=== PATIENT | female | born 1980 | race Two or more races ===

== ENCOUNTER 2022-04-21 10:06 | Emergency (ER) | payer BC, MEDICAID, OTHER ==
[~2022-04-21] VITALS: Ht 154.9 cm; Wt 83.0 kg
[2022-04-21] MEDS ORDERED: SODIUM CHLORIDE 0.9% 1,000 ML IV ONE (11:45)
[2022-04-21 12:31] LABS: Basophils # (auto) 0 10 ^3/uL (0-0.2); Basophils % (auto) 0.2 % (0.0-2.0); Eosinophils # (auto) 0 10 ^3/uL (0-0.8); Eosinophils % (auto) 0.1 % (0.0-7.0); Hemoglobin 14.4 g/dL (12.2-16.2); Lymphocytes # (auto) 1.1 10 ^3/uL (0.4-5.4); Lymphocytes % (auto) 7.7 % (10.0-50.0); Mean Corpuscular Hemoglobin 27.1 pg (28.0-32.0); Mean Corpuscular Hgb Conc. 32.6 g/dL (32.0-36.0); Mean Corpuscular Volume 83.1 fL (80.0-100.0); Monocytes # (auto) 0.6 10 ^3/uL (0-1.3); Monocytes % (auto) 4.2 % (0.0-12.0); Neutrophils # (auto) 12.5 10 ^3/uL (1.6-8.6); Neutrophils % (auto) 87.8 % (37.0-80.0); Nucleated Red Blood Cells % 0.2 %; Red Cell Distribution Width 15.1 % (11.8-14.3); White Blood Cell 14.2 10^3/uL (4.4-10.8)
[2022-04-21 12:56] LABS: Albumin 4.1 g/dL (3.4-5.0); BUN/Creatinine Ratio 22.4; Bilirubin, Total 0.9 mg/dL (0.2-1.0); CRP High Sensitivity 0.67 mg/dL (< 0.3); Calcium 8.9 mg/dL (8.5-10.1); Potassium 3.9 mmol/L (3.5-5.1); Total Protein 7.5 g/dL (6.4-8.2)
[2022-04-21 18:27] LABS: Urine Bacteria FEW /hpf (None Seen); Urine Blood Negative /uL (Negative); Urine Mucus FEW (None Seen); Urine WBC 3 /hpf (0 - 5)
[2022-04-21] MEDS ORDERED: CIPR-173 PO (20:00)
[2022-04-21 20:29] VITALS: BP 128/73
== END 2022-04-21 20:30 | disposition home or self-care (01) ==
LOC: ER 10:06
DX: R10.33 Periumbilical pain (principal); K52.9 Noninfective gastroenteritis and colitis, unspecified; K59.00 Constipation, unspecified; Z90.49 Acquired absence of other specified parts of digestive tract
CPT/HCPCS: 36415; 74176; 80053; 81001; 83605; 83690; 84484; 85025; 85652; 86141; 87040; 96360; 99284; J7030